=== PATIENT | male | born 1970 | race Two or more races ===

== ENCOUNTER 2017-07-24 20:56 | Emergency (ER) | payer SELFPAY ==
[~2017-07-24] VITALS: Ht 177.8 cm; Wt 68.5 kg
[2017-07-24 21:35] VITALS: BP 135/100
[2017-07-24] MEDS ORDERED: IBUPROFEN600 MG ORAL (21:58)
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
[2017-07-24 22:08] VITALS: BP 135/100
== END 2017-07-24 22:08 | disposition home or self-care (01) ==
LOC: EMR 21:52
DX: M54.5 Low back pain (principal); V43.52XA Car driver injured in collision with other type car in traffic accident, initial encounter; Y92.411 Interstate highway as the place of occurrence of the external cause
CPT/HCPCS: 99283